=== PATIENT | female | born 2000 | race Caucasian/White ===

== ENCOUNTER 2025-06-01 07:53 | Outpatient (CLI) | payer BC, SELFPAY ==
--- NOTE | 2025-06-01 08:00 | CRLHL7_ITS ---
For Patients: As a result of the Century Cures Act, medical imaging exams and procedure reports are released immediately into your electronic medical record. You may view this report before your referring provider. If you have questions, please contact your health care provider. INDICATION: Chronic sinusitis, pressure, headaches and constant drainage TECHNIQUE: CT sinus without contrast. COMPARISON: None. FINDINGS: Frontal sinus: Clear. Ethmoid sinuses: Trace mucosal thickening. Sphenoid sinus: Trace mucosal thickening. Maxillary sinus: Trace mucosal thickening. Ostiomeatal units: Status post resection of the uncinate process bilaterally. Ostiomeatal units are widely patent with trace mucosal thickening noted. Nasal cavity: Minimal rohan bullosa on the left with rightward deviation of the nasal septum and small right nasal spur. Nasopharynx: Unremarkable. Partial resection of the left inferior turbinate (3, 31). Mastoid air cells and middle ears: Clear. Orbits: Unremarkable. Intracranial: No gross abnormality. IMPRESSION: Status post endoscopic sinus surgery with minimal mucosal thickening. Please note that all CT scans at this facility use dose modulation, iterative reconstruction, and/or weight-based dosing when appropriate to reduce radiation dose to as low as reasonably achievable. Dictated by Jalen Balderas MD @ 06/01/2025 8:32:15 AM (Electronically Signed)
== END 2025-06-01 07:54 | disposition home or self-care (01) ==
LOC: CT 07:54
PROVIDERS: PCP Nurse Practitioner Family; Visit Provider Otolaryngology
DX: J32.9 Chronic sinusitis, unspecified (principal)
CPT/HCPCS: 70486

== ENCOUNTER 2025-09-02 08:30 | Day surgery (SDC) | payer BC, SELFPAY ==
[2025-09-02] VITALS (12 sets, daily range): BP systolic 103–116; BP diastolic 64–82; PULSE 83–113; RESP 12–16; TEMP 36.5–36.6; O2SAT 97–100; BMI 21.5
[2025-09-02] MEDS: LACTATED RINGERS 1000 ML 1,000 ML 100 ML IV (08:35)
[2025-09-02] MEDS: OXYMETAZOLINE 0.05% NASAL SPRAY 2 SPRAY NOSTRIL-B (08:41)
[2025-09-02 08:54] LABS: Ur HCG Qualitative* Negative (Negative)
[2025-09-02] MEDS: SODIUM CHLORIDE 0.9 % (FLUSH) 10 ML SYRINGE IVF (09:01)
[2025-09-02] MEDS: AYR SALINE NASAL GEL 1 APPLIC NOSTRIL-B (09:25)
[2025-09-02] MEDS: BUPIVACAINE 0.5%/EPINEPHRINE 0.9 MG (30.9 ML) INJECTION (09:35)
--- NOTE | 2025-09-02 09:54 | P.ANES_ITS ---
Anesthesia Charges Start Date/Time Anesthesia Start Date: 09/02/25 Anesthesia Start Time: 09:13 Stop Date/Time Anesthesia Stop Date: 09/02/25 Anesthesia Stop Time: 09:56 Coding CPT Codes CPT Codes: ANESTH NOSE/SINUS SURGERY - 35838 ([id number]) P1 - NORMAL HEALTHY PATIENT, QK - EVS ATTENDANT 2-4 CNCRNT ANES PROC, QX - INTEGRATION LEAD SVJulian W/ MED DIRECTION
--- NOTE | 2025-09-02 09:54 | W.ANESCHARGE ---
Anesthesia Charges Start Date/Time Anesthesia Start Date: 09/02/25 Anesthesia Start Time: 09:13 Stop Date/Time Anesthesia Stop Date: 09/02/25 Anesthesia Stop Time: 09:56 Coding CPT Codes CPT Codes: ANESTH NOSE/SINUS SURGERY - 59186 ([id number]) P1 - NORMAL HEALTHY PATIENT, QK - COREROOM FOUNDRY LABORER 2-4 CNCRNT ANES PROC, QX - HAND HEEL SEAT FITTER SVJulian W/ MED DIRECTION
--- NOTE | 2025-09-02 09:59 | P.ANES_ITS ---
Anesthesia Charges Start Date/Time Anesthesia Start Date: 09/02/25 Anesthesia Start Time: 09:13 Stop Date/Time Anesthesia Stop Date: 09/02/25 Anesthesia Stop Time: 09:56 Coding CPT Codes CPT Codes: ANESTH NOSE/SINUS SURGERY - 53434 ([id number]) QX - STRUCTURAL TECHNICIAN BONI W/ MED DIRECTION, QK - PRODUCT COORDINATOR 2-4 CNCRNT ANES PROC, P1 - NORMAL HEALTHY PATIENT
--- NOTE | 2025-09-02 09:59 | W.ANESCHARGE ---
Anesthesia Charges Start Date/Time Anesthesia Start Date: 09/02/25 Anesthesia Start Time: 09:13 Stop Date/Time Anesthesia Stop Date: 09/02/25 Anesthesia Stop Time: 09:56 Coding CPT Codes CPT Codes: ANESTH NOSE/SINUS SURGERY - 52012 ([id number]) QX - TURNTABLE MAN BONI W/ MED DIRECTION, QK - DIRECTOR MBA 2-4 CNCRNT ANES PROC, P1 - NORMAL HEALTHY PATIENT
--- NOTE | 2025-09-02 10:34 | W.PM.ENTPROC ---
Procedure Note Date of procedure: 09/02/25 Procedure: Preop diagnosis deviated septum, left middle turbinate rohan bullosa, bilateral inferior turbinate hypertrophy, nasal headaches Postop same Procedure nasal septoplasty, submucous partial resection inferior turbinates bilateral Endoscopic partial resection left middle turbinate rohan bullosa Under general trach anesthesia patient was prepped draped usual fashion nose decongested and injected. Incision was made in the septal mucosa just anterior to the deflection and area 3. The mucosa on either side was elevated for of course I 1st cut through the cartilage just anterior to the bony cartilaginous junction. Deflected portions of septal bone were resected and a large piece trimmed returned to the posterior intraseptal space in the flap laid back down nicely. The left middle turbinate rohan bullosa was then addressed. This was done with the available assistance of 0 degree endoscopy. Incision was made in the inferolateral portion of the rohan and then the rohan bone infractured the turbinate crushed. A stab incision was made in the anterior of the right inferior turbinate a tunnel created with a [place] dissector. A conservative anterior submucous resection was performed then the Coblation was used to cauterize intramurally along the inferior 10%. The left inferior turbinate had some polypoid degeneration at the midportion. This was cauterized submucosally. Merocel packing coated in Bactroban was placed on either side the septal flap. The patient procedure well was taken recovery in satisfactory condition blood loss less than 10 mL. Surgeon: Manuel Greenwood MD
== END 2025-09-02 11:50 | disposition home or self-care (01) ==
PROVIDERS: Anesthesiology; PCP Nurse Practitioner Family; Visit Provider Otolaryngology
PROC: (CPT 31231; principal; 2025-09-02 09:45)
DX: J34.2 Deviated nasal septum (principal); J34.3 Hypertrophy of nasal turbinates; R51.9 Headache, unspecified
CPT/HCPCS: 30520; 30140; 31240; 00160; 81025; A9270; J1100; J2405; J3010; J3490; J7120